=== PATIENT | female | born 1975 | race Caucasian/White ===

== ENCOUNTER → 2016-10-21 | Outpatient (CLI) | payer OTHER ==
--- NOTE | 2016-10-22 09:36 | MM ---
Reason for exam: screening (asymptomatic). Last mammogram was performed 1 year and 6 months ago. History: Took hormonal contraceptives for 13 years beginning at age 14. Physical Findings: A clinical breast exam by your physician is recommended on an annual basis and results should be correlated with mammographic findings. MG 3D Screening Mammo W/Cad Bilateral CC and MLO view(s) were taken. Prior study comparison: April 10, 2015, bilateral MG screening mammo w CAD. The breast tissue is extremely dense which could obscure a lesion on mammography. No suspicious abnormality. No significant changes when compared with prior studies. ASSESSMENT: Negative, BI-RAD 1 RECOMMENDATION: Routine screening mammogram of both breasts in 1 year.
== END | disposition home or self-care (01) ==
LOC: RADMAMWWP 16:51
PROVIDERS: ATTEND Obstetrics & Gynecology
DX: Z12.31 Encounter for screening mammogram for malignant neoplasm of breast (principal)
CPT/HCPCS: 77063; G0202

== ENCOUNTER → 2017-10-27 | Outpatient (CLI) | payer OTHER ==
[2017-10-27 17:48] LABS: Basophils % (A) 1 %; Eosinophils # (A) 0.1 k/uL (0-0.7); Eosinophils % (A) 2 %; HCT 43.2 % (34.0-46.0); HGB 13.5 gm/dL (11.4-16.0); Lymphocytes % (A) 32 %; MCH 31.7 pg (25.0-35.0); MCHC 31.3 g/dL (31.0-37.0); MCV 101.2 fL (80.0-100.0); Mean Platelet Volume 6.9; Monocytes # (A) 0.9 k/uL (0-1.0); Monocytes % (A) 9 %; Neutrophils # (A) 5.2 k/uL (1.3-7.7); Neutrophils % (A) 54 %; Platelet Count 209 k/uL (150-450); RBC 4.26 m/uL (3.80-5.40); RDW 12.4 % (11.5-15.5); WBC 9.5 k/uL (3.8-10.6)
== END | disposition home or self-care (01) ==
LOC: LABWHC1 17:08
PROVIDERS: ATTEND Allergy & Immunology
DX: J45.40 Moderate persistent asthma, uncomplicated (principal); K21.9 Gastro-esophageal reflux disease without esophagitis
CPT/HCPCS: 36415; 80198; 82784; 83516; 85025

== ENCOUNTER → 2019-03-12 | Outpatient (CLI) | payer OTHER ==
--- NOTE | 2019-03-14 10:16 | MM ---
Reason for exam: screening (asymptomatic). Last mammogram was performed 2 years and 5 months ago. History: Took hormonal contraceptives for 13 years beginning at age 14. Physical Findings: A clinical breast exam by your physician is recommended on an annual basis and results should be correlated with mammographic findings. MG Screening Mammo w CAD Bilateral CC and MLO view(s) were taken. Prior study comparison: October 21, 2016, bilateral MG 3d screening mammo w/cad. April 10, 2015, bilateral MG screening mammo w CAD. The breast tissue is extremely dense which could obscure a lesion on mammography. There is no discrete abnormality. No significant changes when compared with prior studies. ASSESSMENT: Negative, BI-RAD 1 RECOMMENDATION: Routine screening mammogram of both breasts in 1 year.
== END | disposition home or self-care (01) ==
LOC: RADMAMWWP 16:39
PROVIDERS: ATTEND Obstetrics & Gynecology
DX: Z12.31 Encounter for screening mammogram for malignant neoplasm of breast (principal)
CPT/HCPCS: 77067

== ENCOUNTER → 2020-05-13 | Outpatient (CLI) | payer OTHER ==
--- NOTE | 2020-05-13 21:38 | CT ---
EXAMINATION TYPE: CT lumbar spine wo con DATE OF EXAM: 05/13/2020 5:38 PM COMPARISON: None. HISTORY: chronic low back pain, hx of scoliosis CT DLP: 837 mGycm Automated exposure control for dose reduction was used. Unenhanced CT of the lumbar spine was performed. Bone and soft tissue window settings are submitted as well as coronal and sagittal reconstructions. There are 5 lumbar-type vertebra. There is levoconvex scoliosis centered at L1-L2 level. Vertebral devon dy heights are maintained. There is distortion from underlying scoliosis noted. There is mild to mode rate disc space narrowing and spurring at right L1-L2 and L2-L3 levels along with left L4-L5 level. Review of axial images shows left foraminal disc protrusion at T12-L1 level effacing anterolateral th ecal sac and causing mild to moderate left-sided neural foraminal narrowing axial image 6. Axial images at L2-L3 level show right foraminal disc protrusion causing asymmetric [id number] right-sided neural foraminal narrowing. Axial images at L3-L4 level show mild facet arthropathy bilaterally. There is left paracentral disc p rotrusion effacing anterolateral thecal sac and causing moderate inferior left-sided neural foraminal narrowing. [id number] facet arthropathy bilaterally. Axial images at L4-L5 level show mild/moderate facet arthropathy bilaterally. There is broad-based le ft paracentral disc protrusion effacing the anterolateral thecal sac and causing moderate to severe l eft-sided neural foraminal narrowing axial image 47. Axial images at L5-S1 level show mild left greater than right facet arthropathy. There is central dis c protrusion mildly effacing the anterior thecal sac. Patent bilateral neural foramina. Paraspinal muscle bulk is maintained. There are punctate bilateral renal calculi suspected seen more numerous in the visualized right kidney. Debris filled stomach is partially imaged. IMPRESSION: As above.
== END ==
LOC: RADCTMAIN 17:21
PROVIDERS: ATTEND Physical Medicine & Rehabilitation
DX: M41.86 Other forms of scoliosis, lumbar region (principal); M51.25 Other intervertebral disc displacement, thoracolumbar region; M51.27 Other intervertebral disc displacement, lumbosacral region; M47.816 Spondylosis without myelopathy or radiculopathy, lumbar region
CPT/HCPCS: 72131

== ENCOUNTER → 2020-06-23 | Outpatient (CLI) | payer OTHER ==
--- NOTE | 2020-06-25 09:13 | MM ---
Reason for exam: screening (asymptomatic). Last mammogram was performed 1 year and 3 months ago. History: Took hormonal contraceptives for 13 years beginning at age 14. Physical Findings: A clinical breast exam by your physician is recommended on an annual basis and results should be correlated with mammographic findings. MG Screening Mammo w CAD Bilateral CC and MLO view(s) were taken. Prior study comparison: March 12, 2019, bilateral MG screening mammo w CAD. October 21, 2016, bilateral MG 3d screening mammo w/cad. The breast tissue is heterogeneously dense. This may lower the sensitivity of mammography. No significant changes when compared with prior studies. ASSESSMENT: Negative, BI-RAD 1 RECOMMENDATION: Routine screening mammogram of both breasts in 1 year. Patient should continue monthly self breast exams. A negative report should not preclude additional follow up of suspicious palpable abnormalities.
== END | disposition home or self-care (01) ==
LOC: RADMAMWWP 16:22
PROVIDERS: ATTEND Obstetrics & Gynecology
DX: Z12.31 Encounter for screening mammogram for malignant neoplasm of breast (principal)
CPT/HCPCS: 77067

== ENCOUNTER → 2021-07-13 | Outpatient (CLI) | payer OTHER ==
--- NOTE | 2021-07-15 12:55 | MM ---
Reason for exam: screening (asymptomatic). Last mammogram was performed 1 year and 1 month ago. History: Took hormonal contraceptives for 13 years beginning at age 14. Physical Findings: A clinical breast exam by your physician is recommended on an annual basis and results should be correlated with mammographic findings. MG 3D Screening Mammo W/Cad Bilateral CC and MLO view(s) were taken. Prior study comparison: June 23, 2020, bilateral MG screening mammo w CAD. March 12, 2019, bilateral MG screening mammo w CAD. The breast tissue is heterogeneously dense. This may lower the sensitivity of mammography. No significant changes when compared with prior studies. ASSESSMENT: Negative, BI-RAD 1 RECOMMENDATION: Routine screening mammogram of both breasts in 1 year.
== END | disposition home or self-care (01) ==
LOC: RADMAMWWP 14:54
PROVIDERS: ATTEND Obstetrics & Gynecology
DX: Z12.31 Encounter for screening mammogram for malignant neoplasm of breast (principal)
CPT/HCPCS: 77063; 77067

== ENCOUNTER → 2023-07-07 | Outpatient (CLI) | payer BC ==
--- NOTE | 2023-07-11 19:23 | MM ---
Reason for Exam: Screening (asymptomatic). Last mammogram was performed 2 year(s) and 0 month(s) ago. Patient History: Menarche at age 12. First Full-Term at age 28. Late child-bearing (after 28). Hormonal Contraceptives for 13 years from age 14 until age 27. Last menstrual period: Risk Values: Angella 5 year model risk: 1.2%. NCI Lifetime model risk: 11.3%. Prior Study Comparison: 03/12/2019 Bilateral Screening Mammogram, [facility]. 06/23/2020 Bilateral Screening Mammogram, [facility]. 07/13/2021 Bilateral Screening Mammogram, [facility]. Tissue Density: The breasts are heterogeneously dense, which may obscure small masses. Findings: Analyzed By CAD. There is no suspicious group of microcalcifications or new suspicious mass in either breast. Overall Assessment: Negative, BI-RAD 1 Management: Screening Mammogram of both breasts in 1 year. . Patient should continue monthly self-breast exams. A clinical breast exam by your physician is recommended on an annual basis. This exam should not preclude additional follow-up of suspicious palpable abnormalities. Note on Angella scores and lifetime risk: 1. A Angella score greater than 3% is considered moderate risk. If this is the case, consider specialist referral to assess eligibility for a risk reducing agent. 2. If overall lifetime risk for the development of breast cancer is 20% or higher, the patient may qualify for future screening with alternating mammogram and breast MRI. Electronically signed and approved by: Glynn Zapien M.D. Radiologist
== END | disposition home or self-care (01) ==
LOC: RADMAMWWP 15:27
PROVIDERS: ATTEND Family Medicine
DX: Z12.31 Encounter for screening mammogram for malignant neoplasm of breast (principal)
CPT/HCPCS: 77067

== ENCOUNTER → 2024-08-13 | Outpatient (CLI) | payer BC ==
--- NOTE | 2024-08-14 06:44 | MM ---
Reason for Exam: Screening (asymptomatic). Last mammogram was performed 1 year(s) and 1 month(s) ago. Patient History: Menarche at age 12. First Full-Term at age 28. Late child-bearing (after 28). Perimenopausal. Hormonal Contraceptives for 13 years from age 14 until age 27. Risk Values: Angella 5 year model risk: 1.2%. NCI Lifetime model risk: 11.1%. Prior Study Comparison: 06/23/2020 Bilateral Screening Mammogram, [facility]. 07/13/2021 Bilateral Screening Mammogram, [facility]. 07/07/2023 Bilateral MG screening mammo w CAD, [facility]. Tissue Density: The breasts are heterogeneously dense, which may obscure small masses. Findings: Analyzed By CAD. There is no suspicious group of microcalcifications or new suspicious mass in either breast. Overall Assessment: Negative, BI-RAD 1 Management: Screening Mammogram of both breasts in 1 year. Some Advise annual bilateral breast ultrasound surveillance in patient's with background dense tissue. Patient should continue monthly self-breast exams. A clinical breast exam by your physician is recommended on an annual basis. This exam should not preclude additional follow-up of suspicious palpable abnormalities. Note on Angella scores and lifetime risk: 1. A Angella score greater than 3% is considered moderate risk. If this is the case, consider specialist referral to assess eligibility for a risk reducing agent. 2. If overall lifetime risk for the development of breast cancer is 20% or higher, the patient may qualify for future screening with alternating mammogram and breast MRI. [facility], , 08/14/2024 6:40 AM. Electronically signed and approved by: Scott Ruvalcaba M.D.
== END | disposition home or self-care (01) ==
LOC: RADMAMWWP 16:21
PROVIDERS: ATTEND Family Medicine
DX: Z12.31 Encounter for screening mammogram for malignant neoplasm of breast (principal); R92.333 Mammographic heterogeneous density, bilateral breasts; Z92.0 Personal history of contraception
CPT/HCPCS: 77067